=== PATIENT | male | born 1980 | race Caucasian/White ===

== ENCOUNTER 2017-09-05 19:44 | Inpatient (IN) ==
[2017-09-05] MEDS ORDERED: SODIUM BICARBONATE 50 MEQ/50 ML VIAL IV ONE (20:13)
[2017-09-05] MEDS ORDERED: DEXTROSE 5% IN WATER 1,000 ML IV ONE (20:16)
[2017-09-05] MEDS ORDERED: CALCIUM GLUCONATE 7 MEQ in DEXTROSE 5% IN WATER 50 ML IV ONE (20:17)
[2017-09-05] MEDS ORDERED: ALBUTEROL SULFATE 5 MG/ML NEB SOLUTION BOTTLE NEB ONE (20:17)
[2017-09-05] MEDS ORDERED: SODIUM POLYSTYRENE SULFONATE 15 GM/60 ML SUSPENSION PO ONE (20:25)
--- NOTE | 2017-09-05 20:25 | Emergency Department Note ---
Recheck HPI - General Chief Complaint: Recheck/Abnormal Lab/Rx Stated Complaint: abnormal lab Time Seen by Provider: 09/05/17 20:00 Source: patient Mode of arrival: ambulatory Limitations: no limitations - History of Present Illness HPI Narrative: This patient was sent into the hospital or emergency room for admission after the tongue carrier found that his potassium was elevated at 6.6 and that he was in some renal failure. Patient feels well. He does have a lot of chronic medical problems including spina bifida bifida and some decubitus ulcers. He has had some chronic renal failure in the past according to his records. Potassium was high last week and they stopped his potassium. He also takes lisinopril. - Related Data Home Medications Medication Instructions Recorded Confirmed Thomas Cloth Tape #1 ea 09/03/17 09/03/17 folic acid 1 mg tablet 1 mg PO QDAY 09/03/17 09/05/17 furosemide 20 mg tablet 20 mg PO QDAY 09/03/17 09/05/17 glimepiride 1 mg tablet 1 mg PO BID tab 09/03/17 09/05/17 hydrocodone 10 mg-acetaminophen 1 tab PO QID PRN tab 09/03/17 09/05/17 325 mg tablet lisinopril 20 mg tablet 20 mg PO QDAY 09/03/17 09/05/17 metformin 1,000 mg tablet 1,000 mg PO BID 09/03/17 09/05/17 multivitamin tablet 1 tab PO QDAY 09/03/17 09/05/17 nystatin 100,000 unit/gram topical 1 applic TOPICAL BID 09/03/17 09/03/17 cream omeprazole 20 mg capsule,delayed 20 mg PO QDAY 09/03/17 09/05/17 release rivaroxaban 20 mg tablet 20 mg PO QDAY 09/03/17 09/05/17 silver-hydrocolloid dressing 1.2 each TOPICAL 09/03/17 09/05/17 %-4" X 5" tizanidine 4 mg tablet 4 mg PO QHS tab 09/03/17 09/05/17 vancomycin HCL Powder TOPICAL 09/03/17 09/05/17 venlafaxine ER 150 mg 150 mg PO QDAY 09/03/17 09/05/17 tablet,extended release 24 hr zolpidem 10 mg tablet 10 mg PO HS PRN 09/03/17 09/05/17 Allergies Allergy/AdvReac Type Severity Reaction Status Date / Time Banana [BANANA] Allergy Severe THROAT Verified 09/05/17 13:49 SWELLS iodine [IODINE] Allergy Severe Anaphylaxis Verified 09/05/17 13:49 kiwi [KIWI] Allergy Severe THROAT Verified 09/05/17 13:49 SWELLS latex [LATEX] Allergy Severe Anaphylaxis Verified 09/05/17 13:49 sulfamethoxazole Allergy Severe Anaphylaxis Verified 09/05/17 13:49 [From SEPTRA] povidone-iodine Allergy Unknown Anaphylaxis Verified 09/05/17 13:49 [From BETADINE] From PHENERGAN Allergy Severe SIEZURES Uncoded 09/05/17 13:49 Review of Systems All systems ED: reviewed and negative except as stated. 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) Back pain (Chronic) Kidney stone (Chronic) Decubitus ulcer (Chronic) DM type 2 (diabetes mellitus, type 2) (Chronic) Hypoglycemia due to type 2 diabetes mellitus (Chronic) Lethargy (Chronic) Spina bifida (Chronic) Seizure disorder (Chronic) Hypertension (Chronic) GERD (gastroesophageal reflux disease) (Chronic) Insomnia (Chronic) Anemia (Chronic) Hydrocephalus (Chronic) Recurrent UTI (Chronic) Renal calculus (Chronic) Depression (Chronic) Decreased hearing of left ear (Chronic) Shoulder pain, right (Chronic) DVT (deep venous thrombosis) (Chronic) Past Surgical History (Last Updated 09/03/17 @ 11:03 by Miri Ricks) Complication of urostomy (Chronic) History of incision and drainage (Chronic) History of ventricular shunt (Chronic) Family History (Last Updated 09/03/17 @ 10:51 by Miri Ricks) Family/Other Stroke Hypertension Brother Asthma Mother Hypertension Brittle bones - Social History smoking status: Never smoker Physical Exam Limitations: no limitations General appearance: alert Head: atraumatic Eye: Present: normal appearance ENT: normal exam Neck: Present: normal inspection Chest: Present: normal inspection Respiratory: Present: normal lung sounds bilaterally Cardiovascular: Present: regular rate, normal rhythm, normal heart sounds Abdominal: Present: soft. Absent: distention, tenderness Neurological: Present: alert Psychiatric: Present: normal affect, normal mood Skin: Present: warm, dry, intact Course Vital Signs Temperature 98.5 F 09/05/17 19:45 Pulse Rate 100 H 09/05/17 19:45 Respiratory Rate 09/05/17 19:45 Blood Pressure 115/78 09/05/17 19:45 Pulse Oximetry (%) 100 09/05/17 19:45 Temperature 98.5 F 09/05/17 19:45 Pulse Rate 100 H 09/05/17 19:45 Respiratory Rate 09/05/17 19:45 Blood Pressure 115/78 09/05/17 19:45 Pulse Oximetry (%) 100 09/05/17 19:45 Recheck/Abnormal Lab/Rx - MDM Narrative Medical decision making narrative: This patient will be admitted to the hospital by Dr. Galvan with the tongue carrier consulting. Disposition Pt seen by REAL ESTATE SALES AGENT/PA only: No Clinical Impression: Hyperkalemia, CKD (chronic kidney disease) stage 3, GFR 30-59 ml/min, Acute kidney injury, DM type 2 (diabetes mellitus, type 2), Decubitus ulcer, Spina bifida Disposition: Xfer As Inpt ([facility]) Condition: Fair Referrals: Karel De Leon MD [Primary Care Provider] - Time of Disposition: 20:25
--- NOTE | 2017-09-05 20:38 | Internal Med History&Physical ---
Medical - H&P: [facility] Patient information: Note initiated : 09/05/17 at 8:38 pm Service Date, if different from initiated Date: [] Patient: Nguyen Johnson a 36 y/o M admitted on for abnormal lab. Chief Complaint: [] Chief complaint: elevated potassium History of present illness: Mr. Johnson is a 36 year old M with a history of chronic kidney disease, spina bifida /hydrocephalus and underlying seizure disorder who was directed to the ER from nephrology office after his recent labs revealed potassium 6.6 along with elevated creatinine with metabolic acidosis. Patient lives at oral feeding along with parents and receives help from her caregiver due to his grave disability from underlying spina bifida. Patient was admitted for management and evaluation of hyperkalemia and renal failure in consultation with nephrology. At the time of evaluation patient is alert oriented and denies any active distress. He feels at baseline. He does endorse to weakness, fatigue and loss of appetite over the last few days. He has not been taking NSAIDs and denies recent changes in medication. Denies diarrhea or dysuria. He frequently changes urostomy bag once every 48 hours. He denies shaking chills chest pain cough headache photophobia. 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) Back pain (Chronic) Kidney stone (Chronic) Decubitus ulcer (Chronic) DM type 2 (diabetes mellitus, type 2) (Chronic) Hypoglycemia due to type 2 diabetes mellitus (Chronic) Lethargy (Chronic) Spina bifida (Chronic) Seizure disorder (Chronic) Hypertension (Chronic) GERD (gastroesophageal reflux disease) (Chronic) Insomnia (Chronic) Anemia (Chronic) Hydrocephalus (Chronic) Recurrent UTI (Chronic) Renal calculus (Chronic) Depression (Chronic) Decreased hearing of left ear (Chronic) Shoulder pain, right (Chronic) DVT (deep venous thrombosis) (Chronic) Surgical history: Complication of urostomy (Chronic) History of incision and drainage (Chronic) Perirectal Abscess History of ventricular shunt (Chronic) Pertinent family history: Family/Other Stroke Unknown Hypertension Unknown Brother Asthma Mother Hypertension Brittle bones Social history: marital status: single occupational status: disabled, helped by caregiver, lives with parents smoking status: Never smoker alcohol intake frequency: does not drink substance use type: does not use Medical - H&P: Meds Home Medications Medication Instructions Recorded Confirmed Type Thomas Cloth Tape #1 ea 09/03/17 09/03/17 History folic acid 1 mg tablet 1 mg PO QDAY 09/03/17 09/05/17 History furosemide 20 mg tablet 20 mg PO QDAY 09/03/17 09/05/17 History glimepiride 1 mg tablet 1 mg PO BID tab 09/03/17 09/05/17 History hydrocodone 10 mg-acetaminophen 1 tab PO QID PRN tab 09/03/17 09/05/17 History 325 mg tablet lisinopril 20 mg tablet 20 mg PO QDAY 09/03/17 09/05/17 History metformin 1,000 mg tablet 1,000 mg PO BID 09/03/17 09/05/17 History multivitamin tablet 1 tab PO QDAY 09/03/17 09/05/17 History nystatin 100,000 unit/gram topical 1 applic TOPICAL BID 09/03/17 09/05/17 History cream omeprazole 20 mg capsule,delayed 20 mg PO QDAY 09/03/17 09/05/17 History release rivaroxaban 20 mg tablet 20 mg PO QDAY 09/03/17 09/05/17 History silver-hydrocolloid dressing 1.2 each TOPICAL 09/03/17 09/05/17 History %-4" X 5" tizanidine 4 mg tablet 4 mg PO QHS tab 09/03/17 09/05/17 History vancomycin HCL Powder TOPICAL 09/03/17 09/05/17 History venlafaxine ER 150 mg 150 mg PO QDAY 09/03/17 09/05/17 History tablet,extended release 24 hr zolpidem 10 mg tablet 10 mg PO HS PRN 09/03/17 09/05/17 History Allergies Allergy/AdvReac Type Severity Reaction Status Date / Time Banana [BANANA] Allergy Severe THROAT Verified 09/05/17 13:49 SWELLS iodine [IODINE] Allergy Severe Anaphylaxis Verified 09/05/17 13:49 kiwi [KIWI] Allergy Severe THROAT Verified 09/05/17 13:49 SWELLS latex [LATEX] Allergy Severe Anaphylaxis Verified 09/05/17 13:49 povidone-iodine Allergy Severe Anaphylaxis Verified 09/06/17 06:27 [From BETADINE] sulfamethoxazole Allergy Severe Anaphylaxis Verified 09/05/17 13:49 [From SEPTRA] promethazine AdvReac Severe Seizure Verified 09/06/17 06:27 Medical - H&P: Exam - Constitutional Vitals: Temp Pulse Resp BP Pulse Ox 98.5 F 100 H 19 115/78 100 09/05/17 19:45 09/05/17 19:45 09/05/17 19:45 09/05/17 19:45 09/05/17 19:45 Exam: Alert and nondistressed Head atraumatic No ear discharge Neck no lymphadenopathy S1 and S2 regular rhythm Diminished breath sounds bases Abdomen urostomy Decubitus ulcerations sacral/gluteal area Hypoplastic lower extremity Skin no suspicious lesion Psych alert cooperative no anxiety Limited neuro exam normal higher Function Medical - H&P: Reslt - Labs CBC & Chem 7: 09/06/17 04:15 09/06/17 04:15 Medical - H&P: A/P (1) Hyperkalemia Current visit: Yes Status: Acute * Hyperkalemia 6.6-initiate hyperkalemia protocol. Managed by nephrology * Acute renal failure managed by nephrology * Metabolic acidosis. Nephrology consulted. Started on bicarbonate drip * History of hypertension hold EDWARDO inhibitor * GERD on PPI * Anxiety disorder on venlafaxine * Chronic pain on hydrocodone * Sacral decubiti-has been managed outpatient by wound care * DM type II on prandial insulin. Metformin held as per nephrology recommendation * Full code Plan * HyperK/renal failure management per nephrology * pre-existing medical condition management as above * Telemetry inpatient admit
[2017-09-05] MEDS ORDERED: CALCIUM CHLORIDE 1,000 MG/10 ML SYRINGE IV ONE (21:04)
[2017-09-05] MEDS ORDERED: SODIUM BICARBONATE VIAL 150 MEQ in DEXTROSE 5% IN WATER 850 ML IV SCH (21:15)
[2017-09-05] MEDS ORDERED: DEXTROSE 31 GM ORAL.SUSP PO PRN (22:03)
[2017-09-05] MEDS ORDERED: DEXTROSE 50% 50 ML VIAL IV PRN (22:03)
[2017-09-05] MEDS: DOCUSATE SODIUM 100 MG CAPSULE PO SCH (23:02)
[2017-09-05] MEDS: INSULIN LISPRO 1 UNIT/0.01 ML UNIT SQ SCH (23:02)
[2017-09-05] MEDS: SENNOSIDES/DOCUSATE SODIUM 1 TAB TABLET PO SCH (23:03)
[2017-09-05] MEDS: 0.9 % SODIUM CHLORIDE 10 ML SYRINGE IV SCH (23:03)
[2017-09-06] MEDS: ACETAMINOPHEN 325 MG TABLET PO PRN ×2 (01:10→18:54)
[2017-09-06] MEDS ORDERED: ACETAMINOPHEN 325 MG TABLET PO ONE (01:13)
[2017-09-06] MEDS: 0.9 % SODIUM CHLORIDE 10 ML SYRINGE IV SCH ×3 (05:27→21:38)
[2017-09-06 06:45] LABS: Mean Cell Volume 83.8 fL (80.0-100.0); Mean Corpuscular HGB Conc 32.8 g/dL (31.0-36.0); Mean Corpuscular Hemoglobin 27.5 pg (26.0-34.0); Platelet Count 267 K/mcL (140-440); RBC 3.42 M/mcL (4.50-5.90); Red Cell Distribution Width 19.1 % (11.5-14.5)
[2017-09-06 06:46] LABS: ALT/SGPT 19 U/l (0-40); Albumin 3.4 gm/dL (3.2-5.2); Alkaline Phosphatase 90 U/L (39-117); Bilirubin,Direct < 0.2 mg/dL (0.0-0.3); Blood Urea Nitrogen 52 mg/dl (6-20); Gamma Glutamyl Transpeptidase 54 U/L (8-61); Uric Acid 10.4 mg/dL (2.5-8.0)
--- NOTE | 2017-09-06 06:54 | Nephrology Consult Note ---
History of Present Illness - Reason for Consult Patient information: Note initiated : 09/06/17 at 6:52 am Patient: Nguyen Johnson a 36 y/o M admitted on 09/05/17 for abnormal lab. Chief Complaint: Loss of appetite Consult date: 09/06/17 acute renal failure, hyperkalemia, metabolic acidosis Requesting physician: Richmond Berman - Chief Complaint Loss of appetite - History of Present Illness Nguyen Johnson is a [id number] male with history of spina bifida and hydrocephalus due to myelomeningocele (s/p multiple surgeries for shunts), seizure disorder, wheelchair bound status, history of decubitus ulcers, chronic kidney disease stage 2-3 with persistent non-nephrotic range proteinuria due to obstructive uropathy and pyelonephritis (history of recurrent urinary tract infections and nephrolithiasis s/p urostomy), history of acute kidney injury due to sepsis, history of hyperkalemia and metabolic acidosis, chronic anemia associated with chronic disease and iron deficiency, bilateral lower extremity edema, diabetes mellitus type 2, 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 The patient took 2 antibiotics in the last week of July and first week of August for wound infection. Acute kidney injury, likely due to antibiotics associated with ACEI, NSAIDs and diuretics. Blood work was repeated and showed persistent acute kidney injury with hyperkalemia and hyperchloremic metabolic acidosis. He was referred to [facility] for admission. Review of Systems Constitutional: anorexia, weakness Nose, mouth and throat: no nasal congestion, no sore throat Cardiovascular: no chest pain, no palpatations Respiratory: no cough, no wheezing Gastrointestinal: no abdominal pain, no diarrhea Genitourinary: other (ileal conduit without problems), no hematuria Musculoskeletal: no back pain, no neck pain Integumentary: no rash, no wounds Neurological: no confusion, no focal weakness Psychiatric: no anxiety, no panic attacks Endocrine: no cold intolerance, no heat intolerance Hematologic/Lymphatic: no easy bleeding, no easy bruising Allergic/Immunologic: no tongue swelling, no uticaria Past History Past medical history: Medical History (Last Updated 09/03/17 @ 11:03 by Miri Ricks) Incisional abscess (Chronic) Heart valve problem (Chronic) 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) Back pain (Chronic) Kidney stone (Chronic) Decubitus ulcer (Chronic) DM type 2 (diabetes mellitus, type 2) (Chronic) Hypoglycemia due to type 2 diabetes mellitus (Chronic) Lethargy (Chronic) Spina bifida (Chronic) Seizure disorder (Chronic) Hypertension (Chronic) GERD (gastroesophageal reflux disease) (Chronic) Insomnia (Chronic) Anemia (Chronic) Hydrocephalus (Chronic) Recurrent UTI (Chronic) Renal calculus (Chronic) Depression (Chronic) Decreased hearing of left ear (Chronic) Shoulder pain, right (Chronic) DVT (deep venous thrombosis) (Chronic) Past surgical history: Past Surgical History (Last Updated 09/03/17 @ 11:03 by Miri Ricks) Complication of urostomy (Chronic) History of incision and drainage (Chronic) History of ventricular shunt (Chronic) Past family history: Family History (Last Updated 09/03/17 @ 10:51 by Miri Ricks) Family/Other Stroke Hypertension Brother Asthma Mother Hypertension Brittle bones Past social history: Social History (Last Updated 09/05/17 @ 14:21 by Benny Singleton MD) No Social History Section defined Medications and Allergies Home Medications Medication Instructions Recorded Confirmed Type Thomas Cloth Tape #1 ea 09/03/17 09/03/17 History folic acid 1 mg tablet 1 mg PO QDAY 09/03/17 09/05/17 History furosemide 20 mg tablet 20 mg PO QDAY 09/03/17 09/05/17 History glimepiride 1 mg tablet 1 mg PO BID tab 09/03/17 09/05/17 History hydrocodone 10 mg-acetaminophen 1 tab PO QID PRN tab 09/03/17 09/05/17 History 325 mg tablet lisinopril 20 mg tablet 20 mg PO QDAY 09/03/17 09/05/17 History metformin 1,000 mg tablet 1,000 mg PO BID 09/03/17 09/05/17 History multivitamin tablet 1 tab PO QDAY 09/03/17 09/05/17 History nystatin 100,000 unit/gram topical 1 applic TOPICAL BID 09/03/17 09/05/17 History cream omeprazole 20 mg capsule,delayed 20 mg PO QDAY 09/03/17 09/05/17 History release rivaroxaban 20 mg tablet 20 mg PO QDAY 09/03/17 09/05/17 History silver-hydrocolloid dressing 1.2 each TOPICAL 09/03/17 09/05/17 History %-4" X 5" tizanidine 4 mg tablet 4 mg PO QHS tab 09/03/17 09/05/17 History vancomycin HCL Powder TOPICAL 09/03/17 09/05/17 History venlafaxine ER 150 mg 150 mg PO QDAY 09/03/17 09/05/17 History tablet,extended release 24 hr zolpidem 10 mg tablet 10 mg PO HS PRN 09/03/17 09/05/17 History Allergies Allergy/AdvReac Type Severity Reaction Status Date / Time Banana [BANANA] Allergy Severe THROAT Verified 09/05/17 13:49 SWELLS iodine [IODINE] Allergy Severe Anaphylaxis Verified 09/05/17 13:49 kiwi [KIWI] Allergy Severe THROAT Verified 09/05/17 13:49 SWELLS latex [LATEX] Allergy Severe Anaphylaxis Verified 09/05/17 13:49 povidone-iodine Allergy Severe Anaphylaxis Verified 09/06/17 06:27 [From BETADINE] sulfamethoxazole Allergy Severe Anaphylaxis Verified 09/05/17 13:49 [From SEPTRA] promethazine AdvReac Severe Seizure Verified 09/06/17 06:27 Exam - Vital Signs Vital signs: Temp Pulse Resp BP Pulse Ox 97.8 F 96 H 16 89/55 98 09/06/17 05:25 09/05/17 22:00 09/06/17 05:25 09/06/17 05:25 09/06/17 05:25 - General Appearance General appearance: chronically ill EENT: mucous membranes moist Neck: supple Respiratory: clear Cardiology: no edema Gastrointestinal: no tenderness, no guarding Integumentary: warm and dry Neurologic: no focal deficit, alert and oriented x3 Musculoskeletal: no deformities Psychiatric: mood/affect appropriate, cooperative Results - Lab Results 09/06/17 04:15 09/06/17 04:15 Most recent lab results Calcium 9.2 mg/dl (8.6-10.4) 09/06/17 04:15 Phosphorus 4.2 mg/dL (2.7-4.5) 09/06/17 04:15 Magnesium 1.5 mg/dL (1.6-2.5) L 09/06/17 04:15 Assessment and Plan (1) Acute on chronic renal failure Acute kidney injury on chronic kidney disease stage 3, with hyperkalemia and hyperchloremic metabolic acidosis, present on arrival. There is no recent history of IV contrast administration. He has been using NSAID occasionally. Acute glomerulonephritis or interstitial nephritis unlikely per work up. Acute toxic nephropathy due to medications considered. Recent work up: Labs on 08/22/17: Serum creatinine 2.07, eGFR 36 ml/min, potassium 5.9, CO2 18, calcium 9.7. Labs on 08/11/17: Serum creatinine 1.34, eGFR 60 ml/min, potassium 5.8, CO2 19, calcium 9.4. Labs on 08/01/17: Serum creatinine 1.99, eGFR 38 ml/min, potassium 6.0, CO2 14, calcium 10.4. Labs on 01/25/17: Random urine microalbumin 771 mg/L. Renal US on 01/28/17: Medical renal disease with cortical scarring. Urostomy in place. CT Abdomen and Pelvis on 01/27/17: Scarring and atrophy of both kidneys. Bilateral hydroureter, improved. Treatment: Sodium Bicarbonate 150 mEq in 1L D5W at 100 ml/hour. Progress: Blood pressure: 90/55. Urine output: 325 ml reported in the past 12 hours. Creatinine increased from 2.3 to 2.0 in the past 14 hours. Metabolic acidosis, worse associated with renal failure and metformin use Hyperkalemia, improved. Hypomagnesemia. Hyperuricemia. Hyperchloremia, resolved. Plan: Sodium Bicarbonate 1300 mg PO TID for persistent metabolic acidosis. Urinalysis and urine eosinophil smear. Renal US to evaluate post renal causes. No acute hemodialysis need. Hold Lisinopril, Furosemide, Metformin, Voltaren transdermal gel. Avoid ACEI/ARB. Diuretics, Metformin, NSAIDs, nephrotoxic medications and IV contrast. Monitor BMP and urine output. Status: Acute Priority: High Qualifiers: Acute renal failure type: unspecified Chronic kidney disease stage: stage 3 (moderate) Qualified Code(s): N17.9 - Acute kidney failure, unspecified; N18.3 - Chronic kidney disease, stage 3 (moderate) (2) Hyperkalemia, diminished renal excretion Please see above Status: Acute Priority: High (3) Metabolic acidosis Please see above Status: Acute Priority: High
--- NOTE | 2017-09-06 07:19 | Internal Med Progress Note ---
Medical - PN: Subj Patient information: Note initiated : 09/06/17 at 7:17 am Service Date, if different from initiated Date: [] Patient: Nguyen Johnson a 36 y/o M admitted on 09/05/17 for Abnormal Lab/ Hyperkalemia. Chief Complaint: [] Interval history: Mr. Johnson is a 36 year old M with a history of chronic kidney disease, spina bifida /hydrocephalus and underlying seizure disorder who was directed to the ER from nephrology office after his recent labs revealed potassium 6.6 along with elevated creatinine with metabolic acidosis. Patient lives at oral feeding along with parents and receives help from her caregiver due to his grave disability from underlying spina bifida. Patient was admitted for management and evaluation of hyperkalemia and renal failure in consultation with nephrology. At the time of evaluation patient is alert oriented and denies any active distress. He feels at baseline. He does endorse to weakness, fatigue and loss of appetite over the last few days. He has not been taking NSAIDs and denies recent changes in medication. Denies diarrhea or dysuria. He frequently changes urostomy bag once every 48 hours. He denies shaking chills chest pain cough headache photophobia. 09/06- patient doing better. His potassium at 5.2 with creatinine down to 2 From 2.3. Persistent metabolic acidosis. On bicarbonate drip per nephrology. Patient feels fatigued and lethargic but feels close to his baseline. No other concerns expressed by nursing staff. No telemetry events. Urostomy draining clear urine - Constitutional Vitals: Vital Signs Temp Pulse Resp BP Pulse Ox 97.8 F 96 H 16 89/55 98 09/06/17 05:25 09/05/17 22:00 09/06/17 05:25 09/06/17 05:25 09/06/17 05:25 Period Temp Pulse Resp BP Sys/Cornejo Pulse Ox Last 24 Hr 97.8 F-98.5 F 96-100 16-24 89-136/55-79 97-100 Intake and Output 09/05/17 09/06/17 09/06/17 21:59 05:59 13:59 Intake Total 408 / 408 Output Total 325 / 325 Balance 83 / 83 Weight 171 lb 8 oz Intake & Output: Intake & Output 07/09/06/17 09/06/17 21:59 05:59 13:59 Intake Total 408 / 408 Output Total 325 / 325 Balance 83 / 83 Weight 171 lb 8 oz Intake: IV 48 / 48 Dextrose 5% in Water 1,000 ml @ 125 mls/hr IV .Q8H [facility] Rx#: [id number] Sodium Bicarbonate Vial 150 Meq 48 / 48 In Dextrose 5% in Water 850 ml @ 100 mls/hr IV Q10H [facility] Rx#: [id number] Oral 360 / 360 Output: Urine Catheter Amount 325 / 325 General appearance: no acute distress Exam: Alert oriented Urostomy catheter draining clear urine No anxiety Sacral Decubiti Medical - PN: Obj Da - Labs CBC & Chem 7: 09/06/17 04:15 09/06/17 04:15 Labs: Abnormal Lab Results 09/06/17 09/06/17 04:15 04:15 RBC 3.42 L Hgb 9.4 L Hct 28.7 L RDW 19.1 H Potassium 5.2 H Carbon Dioxide 14 L BUN 52 H Creatinine 2.0 H Glucose 180 H Uric Acid 10.4 H Magnesium 1.5 L Triglycerides 345 H Meds: Medications Acetaminophen (Tylenol) 650 mg PO Q4-6HP PRN PRN Reason: PAIN/FEVER > 101 Last Admin: 09/06/17 01:10 Dose: 650 mg Dextrose (Dextrose 50%) 0 ml IV UD PRN PRN Reason: Hypoglycemia Diagnostic Test (Pha) (Accu-Chek) 1 each FS [facility] Last Admin: 09/05/17 23:02 Dose: 1 each Docusate Sodium (Colace) 100 mg PO BID [facility] Last Admin: 09/05/17 23:02 Dose: Not Given Glucose (Insta-Glucose) 15 gm PO PRN PRN PRN Reason: Hypoglycemia Sodium Bicarbonate 150 meq/ (Dextrose) 1,000 mls @ 100 mls/hr IV Q10H [facility] Insulin Human Lispro (Humalog) 0 unit SQ [facility]; Protocol Last Admin: 09/05/17 23:02 Dose: Not Given Senna/Docusate Sodium (Senna Plus Tablet) 1 tab PO [facility] Last Admin: 09/05/17 23:03 Dose: Not Given Sodium Bicarbonate (Sodium Bicarbonate) 1,300 mg PO TID [facility] Sodium Chloride (Saline Flush) 10 ml IV Q8 [facility] Last Admin: 09/06/17 05:27 Dose: Not Given Medical - PN: A/P - Time Spent With Patient Total time spent is greater than 50% in coordination of care (as documented) at patient's floor/unit and/or counseling patient: (1) Hyperkalemia Status: Acute Assessment and plan: * Hyperkalemia. clinically improving potassium down to 5.2. Managed per nephrology * Acute renal failure managed by nephrology. Clinically improving creatinine down to 2 from 2.3 * Metabolic acidosis. Nephrology managing. Bicarbonate 14 * History of hypertension hold EDWARDO inhibitor * GERD on PPI * Anxiety disorder on venlafaxine * Chronic pain on hydrocodone * Sacral decubiti-wound care consult * DM type II on prandial insulin. Metformin held as per nephrology recommendation * Full code Plan * Continue renal issues management per nephrology * pre-existing medical condition management as above * Wound care consult Current Visit: Yes
[2017-09-06] MEDS: DOCUSATE SODIUM 100 MG CAPSULE PO SCH ×2 (07:38→20:55)
[2017-09-06] MEDS: INSULIN LISPRO 1 UNIT/0.01 ML UNIT SQ SCH ×4 (07:38→21:44)
[2017-09-06] MEDS: SODIUM BICARBONATE 650 MG TABLET PO SCH ×3 (07:59→21:44)
[2017-09-06 08:05] LABS: Anisocytosis 1+ (NONE SEEN); Band Neutrophils % 1 % (0-10); Eosinophils % (Manual) 2 % (0-7); Lymphocytes % 20 % (15-49); Monocytes % (Manual) 6 % (1-12); Platelet Estimate NORMAL (NORMAL); RBC Morphology ABNORM (NORMAL); Segmented Neutrophils % 71 % (38-78)
[2017-09-06] MEDS: SODIUM BICARBONATE VIAL 150 MEQ in DEXTROSE 5% IN WATER 850 ML IV SCH ×2 (08:07→17:44)
--- NOTE | 2017-09-06 09:10 | Ultrasound Report ---
History: Hydronephrosis, acute kidney injury and status post bladder resection FINDINGS: The right kidney measures 5.8 x 7.5 x 12.7 cm and the left measures 5.3 x 4.9 x 10.1 cm. There is lobulation of the cortex of both kidneys. The cortex is normal in thickness and echogenicity. Patient has developed mild to moderate hydronephrosis in the right kidney. This has become worse since the prior ultrasound done on 08/03/17. There is stable moderate hydronephrosis in the left kidney. Patient has had bilateral hydronephrosis on multiple prior examinations. 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 IMPRESSION: Worsening hydronephrosis in the right kidney and stable hydronephrosis left kidney Interpreted and Authenticated by: Ozzy Metz 09/06/17
[2017-09-06 10:41] LABS: Appearance,Urine CLOUDY; Bacteria,Urine FEW /hpf (0); Bilirubin,Urine NEG (NEG); Color,Urine YELLOW; Glucose,Urine (UA) NEGATIVE (NEG); Leukocyte Esterase,Urine 500 /uL (NEG); Mucus,Urine FEW /hpf (0); Protein,Urine 30 mg/dL (NEG); Specific Gravity,Urine 1.011 (1.000-1.035); Urine Blood 0.03 mg/dL (<0.03); Urine RBC 19 /hpf (0-1); Urine Squamous Epithelial Cell 0 /hpf (0-4); Urine WBC > 182 /hpf (0-4); Urobilinogen,Urine NEG (NEG)
--- NOTE | 2017-09-06 17:23 | General Surgery Consult Note ---
History of Present Illness Patient information: Note initiated : 09/06/17 at 5:21 pm Service Date, if different from initiated Date: [] Patient: Nguyen Johnson 36 y/o M admitted on 09/05/17 for Abnormal Lab/ Hyperkalemia. Chief Complaint: [] Consult date: 09/06/17 Requesting physician: Richmond Berman (Wound care / management) History of present illness: I reviewed this patient's EHR and discussed this patient's wound care with [employer] This patient was admitted with urinary infection and renal issues. He has spina bifida, hydrocephalus, h/o seizures and multiple pressure ulcers from sacral to gluteal and leg area pressure points. I reviewed his care with ICU nurse and recommended wound care management as follows. CLEAN WOUNDS WITH NS. APPLY BACTROBAN OINTMENT BID. AND COVER WITH DRY GAUZE OR FOAM MEPILEX BORDERED DRESSINGS. Medications and Allergies Home Medications Medication Instructions Recorded Confirmed Type Thomas Cloth Tape #1 ea 09/03/17 09/03/17 History folic acid 1 mg tablet 1 mg PO QDAY 09/03/17 09/05/17 History furosemide 20 mg tablet 20 mg PO QDAY 09/03/17 09/05/17 History glimepiride 1 mg tablet 1 mg PO BID tab 09/03/17 09/05/17 History hydrocodone 10 mg-acetaminophen 1 tab PO QID PRN tab 09/03/17 09/05/17 History 325 mg tablet lisinopril 20 mg tablet 20 mg PO QDAY 09/03/17 09/05/17 History metformin 1,000 mg tablet 1,000 mg PO BID 09/03/17 09/05/17 History multivitamin tablet 1 tab PO QDAY 09/03/17 09/05/17 History nystatin 100,000 unit/gram topical 1 applic TOPICAL BID 09/03/17 09/05/17 History cream omeprazole 20 mg capsule,delayed 20 mg PO QDAY 09/03/17 09/05/17 History release rivaroxaban 20 mg tablet 20 mg PO QDAY 09/03/17 09/05/17 History silver-hydrocolloid dressing 1.2 each TOPICAL 09/03/17 09/05/17 History %-4" X 5" tizanidine 4 mg tablet 4 mg PO QHS tab 09/03/17 09/05/17 History vancomycin HCL Powder TOPICAL 09/03/17 09/05/17 History venlafaxine ER 150 mg 150 mg PO QDAY 09/03/17 09/05/17 History tablet,extended release 24 hr zolpidem 10 mg tablet 10 mg PO HS PRN 09/03/17 09/05/17 History Allergies Allergy/AdvReac Type Severity Reaction Status Date / Time Banana [BANANA] Allergy Severe THROAT Verified 09/05/17 13:49 SWELLS iodine [IODINE] Allergy Severe Anaphylaxis Verified 09/05/17 13:49 kiwi [KIWI] Allergy Severe THROAT Verified 09/05/17 13:49 SWELLS latex [LATEX] Allergy Severe Anaphylaxis Verified 09/05/17 13:49 povidone-iodine Allergy Severe Anaphylaxis Verified 09/06/17 06:27 [From BETADINE] sulfamethoxazole Allergy Severe Anaphylaxis Verified 09/05/17 13:49 [From SEPTRA] promethazine AdvReac Severe Seizure Verified 09/06/17 06:27 Exam Temp Pulse Resp BP Pulse Ox 99.1 F H 105 H 18 113/59 94 09/06/17 16:00 09/06/17 16:00 09/06/17 16:00 09/06/17 16:00 09/06/17 16:00 - Eyes PERRL, normal ocular movement - ENT normal pinna, normal nares, normal mucosa, no congestion - Head Head exam IM: Present: atraumatic, normocephalic - Neck no masses, no bruits, no venous distension - Cardiovascular Cardiovascular exam IM: Present: normal rate and rhythm - Respiratory normal respiratory effort - Abdomen Abdomen: Present: soft, non tender, bowel sounds - Integumentary Present: other (DRY NON STAGEABLE PRESSURE ULCERS legs, sacral area. No draiange and no odor. ) - Neurologic Present: other (Bed confined. Spina Bifida) - Musculoskeletal Present: other (Bed confined. Easting from umbilical area distally. ) Results - Labs 09/07/17 04:19 09/07/17 04:19 Abnormal lab results 09/06/17 09/06/17 09/06/17 Range/Units 04:15 04:15 08:22 RBC 3.42 L (4.50-5.90) M/mcL Hgb 9.4 L (13.5-16.5) g/dL Hct 28.7 L (41.0-55.0) % RDW 19.1 H (11.5-14.5) % RBC Morphology Abnorm A (NORMAL) Polychromasia 1+ A (NONE SEEN) Anisocytosis 1+ A (NONE SEEN) Potassium 5.2 H (3.3-5.1) mmol/L Carbon Dioxide 14 L (22-30) mmol/L BUN 52 H (6-20) mg/dl Creatinine 2.0 H (0.7-1.2) mg/dl Glucose 180 H (70-105) mg/dL Uric Acid 10.4 H (2.5-8.0) mg/dL Magnesium 1.5 L (1.6-2.5) mg/dL Triglycerides 345 H (<150) mg/dl Urine Protein 30 A (NEG) mg/dL Urine Occult Blood 0.03 A (<0.03) mg/dL Ur Leukocyte Esterase 500 A (NEG) /uL Urine RBC 19 H (0-1) /hpf Urine WBC > 182 H (0-4) /hpf Urine Bacteria Few A (0) /hpf Diabetes panel 09/06/17 Range/Units 04:15 Sodium 133 (133-145) mmol/L Potassium 5.2 H (3.3-5.1) mmol/L Chloride 105 (96-108) mmol/L Carbon Dioxide 14 L (22-30) mmol/L BUN 52 H (6-20) mg/dl Creatinine 2.0 H (0.7-1.2) mg/dl Glucose 180 H (70-105) mg/dL Calcium 9.2 (8.6-10.4) mg/dl AST 15 (0-37) U/l ALT 19 (0-40) U/l Alkaline Phosphatase 90 (39-117) U/L Total Protein 6.9 (5.9-8.4) gm/dL Albumin 3.4 (3.2-5.2) gm/dL Triglycerides 345 H (<150) mg/dl Calcium panel 09/06/17 Range/Units 04:15 Calcium 9.2 (8.6-10.4) mg/dl Phosphorus 4.2 (2.7-4.5) mg/dL Albumin 3.4 (3.2-5.2) gm/dL Pituitary panel 09/06/17 Range/Units 04:15 Sodium 133 (133-145) mmol/L Potassium 5.2 H (3.3-5.1) mmol/L Chloride 105 (96-108) mmol/L Carbon Dioxide 14 L (22-30) mmol/L BUN 52 H (6-20) mg/dl Creatinine 2.0 H (0.7-1.2) mg/dl Glucose 180 H (70-105) mg/dL Calcium 9.2 (8.6-10.4) mg/dl Adrenal panel 09/06/17 Range/Units 04:15 Sodium 133 (133-145) mmol/L Potassium 5.2 H (3.3-5.1) mmol/L Chloride 105 (96-108) mmol/L Carbon Dioxide 14 L (22-30) mmol/L BUN 52 H (6-20) mg/dl Creatinine 2.0 H (0.7-1.2) mg/dl Glucose 180 H (70-105) mg/dL Calcium 9.2 (8.6-10.4) mg/dl Total Bilirubin < 0.2 (0.0-1.0) mg/dL AST 15 (0-37) U/l ALT 19 (0-40) U/l Alkaline Phosphatase 90 (39-117) U/L Total Protein 6.9 (5.9-8.4) gm/dL Albumin 3.4 (3.2-5.2) gm/dL All other labs normal. Assessment and Plan (1) Pressure ulcer due to spina bifida Status: Chronic Priority: Low Comment: Assessment : Chronic pressure ulcers due to underlying spina bifida. Plan: Ongoing wound care. Clean with NS. Pat dry. Bacitracin and dry gauze with papertape. OFF load pressure bearing areas and change position q 2hrly. Will see again PRN whilst in hospital or at wound care clinic after d/c for follow up.
[2017-09-06] MEDS ORDERED: HYDROcodone/APAP 10/325MG TABLET PO PRN (19:59)
[2017-09-06] MEDS ORDERED: tiZANidine 4 MG TABLET PO SCH (21:00)
[2017-09-06] MEDS: SENNOSIDES/DOCUSATE SODIUM 1 TAB TABLET PO SCH (21:23)
[2017-09-06] MEDS ORDERED: HYDROcodone/APAP 10/325MG TABLET PO ONE (21:31)
[2017-09-06] MEDS ORDERED: ZOLPIDEM 5 MG TABLET PO PRN (21:45)
[2017-09-06] MEDS: NYSTATIN CRM 1 DOSE TUBE TOPICAL SCH (21:52)
[2017-09-07] MEDS: SODIUM BICARBONATE VIAL 150 MEQ in DEXTROSE 5% IN WATER 850 ML IV SCH (04:14)
[2017-09-07 05:37] LABS: Mean Cell Volume 82.5 fL (80.0-100.0); Mean Corpuscular HGB Conc 33.7 g/dL (31.0-36.0); Mean Corpuscular Hemoglobin 27.8 pg (26.0-34.0); Platelet Count 247 K/mcL (140-440); Red Cell Distribution Width 19.3 % (11.5-14.5)
[2017-09-07] MEDS: 0.9 % SODIUM CHLORIDE 10 ML SYRINGE IV SCH (05:37)
--- NOTE | 2017-09-07 06:02 | Nephrology Progress Note ---
Subjective Patient information: Note initiated : 09/07/17 at 6:00 am Nguyen Johnson is a [id number] male with history of spina bifida and hydrocephalus due to myelomeningocele (s/p multiple surgeries for shunts), seizure disorder, wheelchair bound status, history of decubitus ulcers, chronic kidney disease stage 2-3 with persistent non-nephrotic range proteinuria due to obstructive uropathy and pyelonephritis (history of recurrent urinary tract infections and nephrolithiasis s/p urostomy), history of acute kidney injury due to sepsis, history of hyperkalemia and metabolic acidosis, chronic anemia associated with chronic disease and iron deficiency, bilateral lower extremity edema, diabetes mellitus type 2, 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 The patient took 2 antibiotics in the last week of July and first week of August for wound infection. Acute kidney injury, likely due to antibiotics associated with ACEI, NSAIDs and diuretics. Blood work was repeated and showed persistent acute kidney injury with hyperkalemia and hyperchloremic metabolic acidosis. He was referred to [facility] for admission. Chief Complaint: Loss of appetite Principal diagnosis: Acute kidney injury with hyperkalemia and metabolic acidosis Pertinent ROS: Feels better Objective - Vital Signs Vital signs: Vital Signs Temp Pulse Resp BP Pulse Ox 09/07/17 04:00 97.6 F 96 H 20 104/72 99 09/07/17 00:00 101 H 18 120/60 09/06/17 20:00 98.5 F 78 16 95 09/06/17 16:00 99.1 F H 105 H 18 113/59 94 09/06/17 11:41 98.5 F 96 H 18 93/56 100 Intake and Output 09/06/17 09/07/17 09/07/17 21:59 05:59 13:59 Intake Total 1562 / 1562 1400 / 1400 Output Total 1100 / 1100 Balance 462 / 462 1400 / 1400 Intake: IV 962 / 962 1000 / 1000 Sodium Bicarbonate Vial 150 Meq 962 / 962 1000 / 1000 In Dextrose 5% in Water 850 ml @ 100 mls/hr IV Q10H [facility] Rx#: [id number] Oral 600 / 600 400 / 400 Output: Urine Catheter Amount 1100 / 1100 Other: Weight 170 lb Intake & Output: Intake & Output 0709/07/17 09/07/17 21:59 05:59 13:59 Intake Total 1562 / 1562 1400 / 1400 Output Total 1100 / 1100 Balance 462 / 462 1400 / 1400 Weight 170 lb Intake: IV 962 / 962 1000 / 1000 Sodium Bicarbonate Vial 150 Meq 962 / 962 1000 / 1000 In Dextrose 5% in Water 850 ml @ 100 mls/hr IV Q10H [facility] Rx#: [id number] Oral 600 / 600 400 / 400 Output: Urine Catheter Amount 1100 / 1100 - General Appearance General appearance: well-nourished EENT: mucous membranes moist Neck: supple Respiratory: clear Cardiology: no edema Gastrointestinal: no tenderness, no guarding Integumentary: warm and dry Neurologic: no focal deficit, alert and oriented x3 Musculoskeletal: no deformities Psychiatric: mood/affect appropriate, cooperative - Lab 09/07/17 04:19 09/07/17 04:19 Most recent lab results Calcium 9.2 mg/dl (8.6-10.4) 09/06/17 04:15 Phosphorus 4.2 mg/dL (2.7-4.5) 09/06/17 04:15 Magnesium 1.5 mg/dL (1.6-2.5) L 09/06/17 04:15 Assessment and Plan (1) Acute on chronic renal failure Acute kidney injury on chronic kidney disease stage 3, with hyperkalemia and hyperchloremic metabolic acidosis, present on arrival. Recent work up: Labs on 08/22/17: Serum creatinine 2.07, eGFR 36 ml/min, potassium 5.9, CO2 18 , calcium 9.7. Labs on 08/11/17: Serum creatinine 1.34, eGFR 60 ml/min, potassium 5.8, CO2 19 , calcium 9.4. Labs on 08/01/17: Serum creatinine 1.99, eGFR 38 ml/min, potassium 6.0, CO2 14 , calcium 10.4. Labs on 01/25/17: Random urine microalbumin 771 mg/L. Renal US on 01/28/17: Medical renal disease with cortical scarring. Urostomy in place. CT Abdomen and Pelvis on 01/27/17: Scarring and atrophy of both kidneys. Bilateral hydroureter, improved. Work up: Renal US on 09/06/17: Worsening hydronephrosis in the right kidney and stable hydronephrosis left kidney. Urinalysis on 09/06/17: Yellow, Cloudy, pH 6.0, SG 1.011, protein 30, occult blood 0.03. Urine eosinophil smear on 09/06/17: 1%. Etiology associated with: Worsening hydronephrosis in the right kidney by US Suspected acute toxic nephropathy/interstitial nephritis due to recent antibiotic use Concurrent use of ACEI, diuretics and metformin while kidney function was low. There is no recent history of IV contrast administration. He has been using NSAID occasionally. Acute glomerulonephritis unlikely per work up. Treatment: Sodium Bicarbonate 150 mEq in 1L D5W at 100 ml/hour and Sodium Bicarbonate 1300 mg PO TID for persistent metabolic acidosis. Progress: Blood pressure: 104/72. Urine output: 1100 ml reported in the past 24 hours. Creatinine decreased from 2.0 to 1.5 in the past 24 hours. Metabolic acidosis, resolved. Hyperkalemia, resolved. Hypomagnesemia, mild. Hyperuricemia, improved. Plan: Sodium Bicarbonate infusion and tablets discontinued. Magnesium Oxide 800 mg PO x 1 ordered. OK to discharge home on home medications. Outpatient follow up with his urologist at [facility] next week (to be arranged by the patient). BMP, Magnesium next week. Follow up with me in 2-3 weeks (already scheduled). Status: Acute Priority: High Qualifiers: Acute renal failure type: unspecified Chronic kidney disease stage: stage 3 (moderate) Qualified Code(s): N17.9 - Acute kidney failure, unspecified; N18.3 - Chronic kidney disease, stage 3 (moderate) (2) Hyperkalemia, diminished renal excretion Status: Acute Priority: High (3) Metabolic acidosis Status: Acute Priority: High
[2017-09-07 06:17] LABS: ALT/SGPT 12 U/l (0-40); Albumin 3.1 gm/dL (3.2-5.2); Albumin/Globulin Ratio 0.9 (1.0-2.3); Alkaline Phosphatase 76 U/L (39-117); Bilirubin,Direct < 0.2 mg/dL (0.0-0.3); Blood Urea Nitrogen 55 mg/dl (6-20); Gamma Glutamyl Transpeptidase 42 U/L (8-61); Uric Acid 9.1 mg/dL (2.5-8.0)
[2017-09-07] MEDS ORDERED: MAGNESIUM OXIDE 400 MG TABLET PO ONE (06:25)
[2017-09-07 07:05] LABS: Anisocytosis 1+ (NONE SEEN); Band Neutrophils % 1 % (0-10); Eosinophils % (Manual) 2 % (0-7); Hypochromasia 1+ (NONE SEEN); Lymphocytes % 27 % (15-49); Metamyelocytes % 1 % (0-0); Monocytes % (Manual) 12 % (1-12); Myelocytes % 1 % (0-0); Platelet Estimate NORMAL (NORMAL); RBC Morphology ABNORM (NORMAL); Segmented Neutrophils % 55 % (38-78)
[2017-09-07] MEDS ORDERED: OMEPRAZOLE 20 MG CAPSULE PO SCH (07:30)
[2017-09-07] MEDS: INSULIN LISPRO 1 UNIT/0.01 ML UNIT SQ SCH ×2 (08:38→12:41)
[2017-09-07] MEDS: DOCUSATE SODIUM 100 MG CAPSULE PO SCH (08:53)
[2017-09-07] MEDS ORDERED: FUROSEMIDE 20 MG TABLET PO SCH (09:00)
[2017-09-07] MEDS ORDERED: MULTIVIT,THER IRON,CA,FA & MIN 1 TABLET PO SCH (09:00)
[2017-09-07] MEDS ORDERED: RIVAROXABAN 20 MG TABLET PO SCH (09:00)
[2017-09-07] MEDS ORDERED: VENLAFAXINE 150 MG CAP.XL.24H PO SCH (09:00)
[2017-09-07] MEDS ORDERED: FOLIC ACID 1 MG TABLET PO SCH (09:00)
--- NOTE | 2017-09-07 10:30 | Discharge Summary ---
Medical - DS: Prov Patient information: Note initiated : 09/07/17 at 10:27 am Service Date, if different from initiated Date: [] Patient: Nguyen Johnson 36 y/o M admitted on 09/05/17 for Abnormal Lab/ Hyperkalemia. Chief Complaint: [] Date of admission: 09/05/17 21:55 Discharge date: 09/07/17 Primary care physician: Karel De Leon Consults: 09/05/17 20:17 Consult to Physician [CONS] Stat Comment: Consulting Provider: Richmond Berman Reason For Exam: Physician to Consult 09/05/17 22:03 Consult to Physician [CONS] Routine Comment: Consulting Provider: Benny Singleton Reason For Exam: Physician to Consult Medical - DS: Meds - Discharge Medications Active and Home Medications: Home Medications Thomas Cloth Tape #1 ea 09/03/17 [History Confirmed 09/03/17 Last Taken Unknown] folic acid 1 mg tablet 1 mg PO QDAY 09/03/17 [History Confirmed 09/05/17 Last Taken Unknown] furosemide 20 mg tablet 20 mg PO QDAY 09/03/17 [History Confirmed 09/05/17 Last Taken Unknown] glimepiride 1 mg tablet 1 mg PO BID tab 09/03/17 [History Confirmed 09/05/17 Last Taken Unknown] hydrocodone 10 mg-acetaminophen 325 mg tablet 1 tab PO QID PRN tab 09/03/17 [ History Confirmed 09/05/17 Last Taken Unknown] lisinopril 20 mg tablet 20 mg PO QDAY 09/03/17 [History Confirmed 09/05/17 Last Taken Unknown] metformin 1,000 mg tablet 1,000 mg PO BID 09/03/17 [History Confirmed 09/05/17 Last Taken Unknown] multivitamin tablet 1 tab PO QDAY 09/03/17 [History Confirmed 09/05/17 Last Taken Unknown] nystatin 100,000 unit/gram topical cream 1 applic TOPICAL BID 09/03/17 [History Confirmed 09/05/17 Last Taken Unknown] omeprazole 20 mg capsule,delayed release 20 mg PO QDAY 09/03/17 [History Confirmed 09/05/17 Last Taken Unknown] rivaroxaban 20 mg tablet 20 mg PO QDAY 09/03/17 [History Confirmed 09/05/17 Last Taken Unknown] silver-hydrocolloid dressing 1.2 %-4" X 5" each TOPICAL 09/03/17 [History Confirmed 09/05/17 Last Taken Unknown] tizanidine 4 mg tablet 4 mg PO QHS tab 09/03/17 [History Confirmed 09/05/17 Last Taken Unknown] vancomycin HCL Powder TOPICAL 09/03/17 [History Confirmed 09/05/17 Last Taken Unknown] venlafaxine ER 150 mg tablet,extended release 24 hr 150 mg PO QDAY 09/03/17 [ History Confirmed 09/05/17 Last Taken Unknown] zolpidem 10 mg tablet 10 mg PO HS PRN 09/03/17 [History Confirmed 09/05/17 Last Taken Unknown] Medical - DS: Hosp Hospital course: Discharge diagnoses * Hyperkalemia. clinically resolved. Potassium at 4. Managed per nephrology * Acute renal failure managed by nephrology. Clinically improving creatinine down to 1.4 from 2.3 * Metabolic acidosis. Resolved. Managed per nephrology recommendations. * History of hypertension patient restarted on home medications including EDWARDO inhibitor * GERD on PPI * Anxiety disorder on venlafaxine * Chronic pain continued on hydrocodone * Sacral decubiti-wound care was consulted and managed per wound care recommendation * DM type II on prandial insulin. Restart home medications on discharge Brief hospital course Mr. Johnson is a 36 year old M with a history of chronic kidney disease, spina bifida /hydrocephalus and underlying seizure disorder who was directed to the ER from nephrology office after his recent labs revealed potassium 6.6 along with elevated creatinine with metabolic acidosis. Patient lives at oral feeding along with parents and receives help from her caregiver due to his grave disability from underlying spina bifida. Patient was admitted for management and evaluation of hyperkalemia and renal failure in consultation with nephrology. At the time of evaluation patient is alert oriented and denies any active distress. He feels at baseline. He does endorse to weakness, fatigue and loss of appetite over the last few days. He has not been taking NSAIDs and denies recent changes in medication. Denies diarrhea or dysuria. He frequently changes urostomy bag once every 48 hours. He denies shaking chills chest pain cough headache photophobia. 09/06- patient doing better. His potassium at 5.2 with creatinine down to 2 From 2.3. Persistent metabolic acidosis. On bicarbonate drip per nephrology. Patient feels fatigued and lethargic but feels close to his baseline. No other concerns expressed by nursing staff. No telemetry events. Urostomy draining clear urine 09/07-patient doing well. Metabolic acidosis resolved. Creatinine at baseline down to 1.5. Potassium at 4. Nephrology recommends discharge with follow-up in 2-3 weeks with nephrology and a BMP/magnesium checked in 1 week. Patient discharging with advice as below Discharge diagnosis: . - Time Spent with Patient Total time spent providing and/or coordinating discharge services: Medical - DS: Exam - Constitutional Vitals: Vital Signs Temp Pulse Resp BP Pulse Ox 09/07/17 08:00 98.8 F 16 110/60 96 09/07/17 04:00 97.6 F 96 H 20 104/72 99 09/07/17 00:00 101 H 18 120/60 09/06/17 20:00 98.5 F 78 16 95 09/06/17 16:00 99.1 F H 105 H 18 113/59 94 09/06/17 11:41 98.5 F 96 H 18 93/56 100 Intake and Output 09/06/17 09/07/17 09/07/17 21:59 05:59 13:59 Intake Total 1562 / 1562 1400 / 1400 880 / 880 Output Total 1100 / 1100 900 / 900 Balance 462 / 462 1400 / 1400 -20 Intake: IV 962 / 962 1000 / 1000 Sodium Bicarbonate Vial 150 Meq 962 / 962 1000 / 1000 In Dextrose 5% in Water 850 ml @ 100 mls/hr IV Q10H [facility] Rx#: [id number] Oral 600 / 600 400 / 400 880 / 880 Output: Urine Catheter Amount 1100 / 1100 900 / 900 Other: Meal Breakfast Percent of Meal Consumed 100% Feeding Ability Independent Weight 170 lb Medical - DS: Data Labs on day of discharge: Labs from last 24 hours 09/07/17 09/07/17 09/06/17 04:19 04:19 08:22 WBC 8.8 RBC 3.10 L Hgb 8.6 L Hct 25.6 L MCV 82.5 MCH 27.8 MCHC 33.7 RDW 19.3 H Plt Count 247 MPV 9.3 Total Counted 100 Seg Neutrophils % 55 Band Neutrophils % 1 Lymphocytes % 27 Monocytes % (Manual) 12 Eosinophils % (Manual) 2 Metamyelocytes % 1 H Myelocytes % 1 H Reactive Lymphocytes 1 Platelet Estimate Normal RBC Morphology Abnorm A Hypochromasia 1+ A Anisocytosis 1+ A Sodium 140 Potassium 4.0 Chloride 100 Carbon Dioxide 30 Anion Gap 10.0 BUN 55 H Creatinine 1.5 H GFR Calculation 58 Glucose 173 H Uric Acid 9.1 H Calcium 8.7 Phosphorus 3.0 Magnesium 1.5 L Total Bilirubin < 0.2 Direct Bilirubin < 0.2 GGT 42 AST 6 ALT 12 Alkaline Phosphatase 76 Lactate Dehydrogenase 91 L Total Protein 6.6 Albumin 3.1 L Globulin 3.5 Albumin/Globulin Ratio 0.9 L Triglycerides 294 H Urine Color Yellow Urine Appearance Cloudy Urine pH 6.0 Ur Specific [place] 1.011 Urine Protein 30 A Urine Glucose (UA) Negative Urine Ketones Neg Urine Occult Blood 0.03 A Urine Nitrate Neg Urine Bilirubin Neg Urine Urobilinogen Neg Ur Leukocyte Esterase 500 A Urine RBC 19 H Urine WBC > 182 H Ur Squamous Epith Cells 0 Urine Bacteria Few A Urine Mucus Few Ur Culture Indicated? Yes Urine Eosinophils 1% Medical - DS: A/P - Patient/Caregiver Discharge Instructions Activity: increase activity as tolerated Diet: Renal/Consistent Carbs Additional Instructions: Follow-up nephrology as scheduled BMP/magnesium in 1 week Follow-up urology as prior Continue fall precautions Return to ER if worsening fever chills shortness of breath, diarrhea, bleeding Continue diet and activity as advised Discussed importance of medication adherence Please review medication list with patient prior to discharge Please schedule follow-up with PCP/Providers prior to discharge and provide printouts Portions of this chart may have been created with [employer] voice recognition software. Occasional wrong-word or ?sound-like? substitutions may have occurred due to the inherent limitations of voice recognition software. Please read the chart carefully and recognize, using context, where the substitutions have occurred. CC- PCP - Problem Maintenance (1) Hyperkalemia Status: Acute - Follow up Plan Follow up with: Karel De Leon MD [Primary Care Provider] - Disposition: Home, Self-Care Prognosis: Fair Rehab Potential: Fair I certify that the patient requires SNF services: No Overall status at discharge: patient is progressing back to baseline
[2017-09-07] MEDS: NYSTATIN CRM 1 DOSE TUBE TOPICAL SCH (12:41)
== END 2017-09-07 15:05 | disposition home or self-care (01) | DRG 641 ==
LOC: ED 19:44 → ICU 21:55
PROVIDERS: ADMIT Internal Medicine; ATTEND Internal Medicine